=== PATIENT | male | born 1965 | race Caucasian/White ===

== ENCOUNTER 2016-07-02 13:35 | Inpatient (IN) | payer OTHER, MEDICAID ==
[~2016-07-02] VITALS: Ht 170.2 cm; Wt 80.5 kg
[2016-07-02 14:38] LABS: BASOPHIL % 0.4 % (0-2); CALCIUM 8.8 mg/dL (8.5-10.1); CARBON DIOXIDE 27.7 mmol/L (21-32); CHLORIDE SERUM 105 mmol/L (98-107); CREATININE SERUM 1.1 mg/dL (0.7-1.3); GFR1 > 60 mL/min; GLUCOSE SERUM 113 mg/dL (74-106); PLATELET COUNT 228 x10^3mcL (130-400); POTASSIUM SERUM 3.8 mmol/L (3.5-5.1); RED CELL DISTRIBUTION WIDTH 12.8 % (11.5-14.5); SODIUM SERUM 141 mmol/L (136-145)
[2016-07-02 14:42] LABS: ALBUMIN 3.8 g/dL (3.4-5.0); ALKALINE PHOSPHATASE 75 U/L (46-116); ALT/SGPT 29 U/L (16-63); AST/SGOT 18 U/L (15-37); BILIRUBIN TOTAL 0.41 mg/dL (0.20-1.00); TOTAL PROTEIN, SERUM 7.5 g/dL (6.4-8.2)
[2016-07-02 16:34] VITALS: BP 132/75
[2016-07-02 17:27] VITALS: BP 132/75
[2016-07-02 17:38] LABS: CHOLESTEROL/HDL RATIO 3.6
[2016-07-02 17:44] LABS: T3 TOTAL 1.31 ng/mL
[2016-07-02 17:51] LABS: FREE T4 1.08 ng/dL (0.76-1.46); FREE THYROXINE INDEX 2.9 ug/dL (1.4-4.5); T4(THYROXINE) 8.6 ug/dL (4.7-13.3)
[2016-07-02 20:00] VITALS: BP 143/75
[2016-07-02 21:08] VITALS: Ht 170.2 cm; Wt 80.5 kg
[2016-07-02 22:01] VITALS: BP 132/76
[2016-07-02 22:46] LABS: UA SPECIFIC GRAVITY 1.025 (1.005-1.035); microscopic required? YES; urine erythrocyte 3+ (NEGATIVE)
[2016-07-02 22:56] LABS: AMPHETAMINE QUAL UR NONE DETECTED (NEG <=1000)
[2016-07-03 06:12] LABS: BASOPHIL % 0.3 % (0-2); PLATELET COUNT 208 x10^3mcL (130-400); RED CELL DISTRIBUTION WIDTH 12.8 % (11.5-14.5)
[2016-07-03 06:18] LABS: CALCIUM 7.7 mg/dL (8.5-10.1); CARBON DIOXIDE 25.6 mmol/L (21-32); CHLORIDE SERUM 111 mmol/L (98-107); CREATININE SERUM 1.1 mg/dL (0.7-1.3); GFR1 > 60 mL/min; GLUCOSE SERUM 101 mg/dL (74-106); PHOSPHOROUS 2.7 mg/dL (2.5-4.9); SODIUM SERUM 144 mmol/L (136-145)
[2016-07-03 06:44] VITALS: BP 127/80
[2016-07-03 09:42] VITALS: BP 117/77
[2016-07-03 13:47] VITALS: BP 116/70
[2016-07-03 17:50] VITALS: BP 125/75
[2016-07-03 20:15] VITALS: BP 110/51
[2016-07-04 06:01] VITALS: BP 121/78
[2016-07-04 06:08] LABS: BASOPHIL % 0.4 % (0-2); PLATELET COUNT 205 x10^3mcL (130-400); RED CELL DISTRIBUTION WIDTH 13.3 % (11.5-14.5)
[2016-07-04 06:16] LABS: CARBON DIOXIDE 29.6 mmol/L (21-32); CHLORIDE SERUM 112 mmol/L (98-107); CREATININE SERUM 1.2 mg/dL (0.7-1.3); GFR1 > 60 mL/min; GLUCOSE SERUM 92 mg/dL (74-106); MAGNESIUM 2.1 mg/dL (1.8-2.4); PHOSPHOROUS 2.7 mg/dL (2.5-4.9); POTASSIUM SERUM 4.4 mmol/L (3.5-5.1); SODIUM SERUM 146 mmol/L (136-145)
[2016-07-04 08:56] VITALS: BP 137/86
[2016-07-04] MEDS ORDERED: FLO4 PO (09:59)
[2016-07-04] MEDS ORDERED: APAP/HYDROCODON1 T13 PO (10:00)
[2016-07-04 10:54] VITALS: BP 137/86
== END 2016-07-04 13:10 | disposition home or self-care (01) | DRG 694 ==
LOC: ED 13:35 → MU 15:35 → DU 15:35 → MU 07-03 20:09
PROVIDERS: Emergency Medicine; ADMIT Family Medicine
DX: N13.2 Hydronephrosis with renal and ureteral calculous obstruction (principal); N17.0 Acute kidney failure with tubular necrosis; R31.0 Gross hematuria; E78.5 Hyperlipidemia, unspecified; Z87.442 Personal history of urinary calculi; Z68.27 Body mass index [BMI] 27.0-27.9, adult
CPT/HCPCS: 80307; 83880; 84439; J0295; J0696; J1170; J1885; J2270; J2405; J7030; Q0092

== ENCOUNTER 2016-07-05 08:30 | Emergency (ER) | payer OTHER, MEDICAID ==
[~2016-07-05] VITALS: Ht 170.2 cm; Wt 79.0 kg
[~2016-07-05 08:30] MED LIST: APAP/HYDROCODON1 T13 PO; FLO4 PO
[2016-07-05 10:59] VITALS: BP 120/60
== END 2016-07-05 10:59 | disposition home or self-care (01) ==
LOC: ED 08:30
DX: N20.0 Calculus of kidney (principal); Z79.899 Other long term (current) drug therapy; Z88.5 Allergy status to narcotic agent; Z88.8 Allergy status to other drugs, medicaments and biological substances

== ENCOUNTER 2019-01-18 23:40 | Emergency (ER) | payer OTHER ==
[~2019-01-18] VITALS: Ht 167.6 cm; Wt 70.3 kg
[2019-01-19] VITALS: Ht 167.6 cm; Wt 70.3 kg
[2019-01-19 00:50] LABS: BASOPHIL % 0.4 % (0-2); PLATELET COUNT 216 x10^3mcL (130-400); RED CELL DISTRIBUTION WIDTH 13.1 % (11.5-14.5)
[2019-01-19 01:04] LABS: CALCIUM 8.5 mg/dL (8.5-10.1); CARBON DIOXIDE 28.8 mmol/L (21-32); CREATININE SERUM 1.5 mg/dL (0.7-1.3); POTASSIUM SERUM 4.8 mmol/L (3.5-5.1)
[2019-01-19 01:09] LABS: ALBUMIN 3.5 g/dL (3.4-5.0); BILIRUBIN TOTAL 0.3 mg/dL (0.20-1.00); TOTAL PROTEIN, SERUM 7.1 g/dL (6.4-8.2)
[2019-01-19 05:42] VITALS: BP 128/80
== END 2019-01-19 05:42 | disposition home or self-care (01) ==
LOC: ED 23:40
PROVIDERS: Emergency Medicine
DX: N20.1 Calculus of ureter (principal); Z87.442 Personal history of urinary calculi; Z90.89 Acquired absence of other organs
CPT/HCPCS: J1885; J2270; J2405; J3010; J3490; J7030